=== PATIENT | male | born 1960 | race Two or more races ===

== ENCOUNTER 2025-01-25 16:06 | Outpatient (CLI) | payer MEDICARE | END 2025-01-25 16:07 | disposition home or self-care (01) | LOC: BICRAD 16:06 | PROVIDERS: ATTEND Family Medicine | DX: M51.360 Other intervertebral disc degeneration, lumbar region with discogenic back pain only (principal); M47.816 Spondylosis without myelopathy or radiculopathy, lumbar region | CPT/HCPCS: 72100 ==